=== PATIENT | male | born 1995 | race Two or more races ===

== ENCOUNTER 2017-03-03 19:40 | Emergency (ER) | payer MEDICAID ==
[~2017-03-03] VITALS: Ht 182.9 cm; Wt 83.9 kg
[2017-03-03] MEDS ORDERED: NKM (19:50)
[2017-03-03] MEDS ORDERED: Bacitracin Oint UD TOPIC ONE (20:30)
--- NOTE | 2017-03-03 20:46 | Emergency Room Report ---
History of Present Illness General Chief Complaint: Skin Rash/Abscess Source: Patient (Patrica Mazariegos) Present Illness HPI 21 YO Male presents to the ED c/o Tenderness, erythema, and yellow d/c to the anterior johnson s/p abrasion from rug burn x 4 days. Patient states that he sustained injury to be a rub burn several days ago and was evaluated out an emergency department that updated his tetanus however they did not provide wound cleaning. Patient was given topical antibiotic ointment. He should states that he was having moderate tenderness to the anterior johnson and when he was inspecting the lesion prior to applying the ointment, he noticed a small white object was embedded and he was able to pull it out creating a small hole that continues to bleed. Patient states that he has noticed progressive erythema about the site of the tiny hole. Patient denies fevers or chills patient denies pain knee or pain upon flexion of the knee joint. Patient denies bony tenderness. Patient denies taking blood thinning medications. Denies numbness tingling or loss of sensation or gross motor movements of the extremities, incontinence of bowel or bladder. Denies CP, Palpitations, LOC, AMS , dizziness, Changes in Vision, Sensation, paresthesias, or a sudden severe headache. (Patrica Mazariegos) Allergies: Coded Allergies: No Known Allergies (Unverified , 03/03/17) Patient History Past Medical History: see triage record Past Surgical History: none Pertinent Family History: none Immunizations: UTD Reviewed Nursing Documentation: PMH: Agreed, PSxH: Agreed (Patrica Mazariegos) Nursing Documentation-PM Past Medical History: No Stated History (Patrica Mazariegos) Review of Systems All Other Systems: negative except mentioned in HPI (Patrica Mazraiegos) Physical Exam Vital Signs Date Time Temp Pulse Resp B/P Pulse Ox O2 Delivery O2 Flow Rate FiO2 03/03/17 19:46 65 14 120/70 100 Room Air Sp02 EP Interpretation: reviewed, normal General Appearance: no apparent distress, alert, GCS 15, non-toxic Head: normocephalic, atraumatic Eyes: bilateral eye PERRL, bilateral eye normal inspection ENT: hearing grossly normal, normal pharynx, no angioedema, normal voice Neck: full range of motion, supple/symm/no masses Respiratory: lungs clear, normal breath sounds, speaking full sentences Cardiovascular #1: regular rate, rhythm, no edema Musculoskeletal: back normal, gait/station normal, normal range of motion - FROM of knee without pain., non-tender, tender - to superficial skin and area of erythema on the anterior johnson. Neurologic: alert, oriented x3, responsive, motor strength/tone normal, sensory intact, normal gait, speech normal Psychiatric: judgement/insight normal, memory normal, mood/affect normal Skin: normal color, no rash, warm/dry, well hydrated, other - small 2mm size puncture wound noted after wound cleaning, surrounding erythema, no obvious FB noted. , abrasions - anterior knee/johnson abrasion just below the knee joint, there are multiple scabs, healed abrasion, there is a puncture wound noted Lymphatic: no adenopathy (Patrica Mazariegos [email or web address]) Medical Decision Making PA Attestation Dr. Evans is my supervising Physician whom patient management has been discussed with. (Patrica Mazariegos P.AGeoffrey) Diagnostic Impression: Primary Impression: Puncture wound Additional Impression: Abrasion of skin with infection ER Course Pt. presents to the ED c/o Tenderness, erythema, and yellow d/c to the anterior johnson s/p abrasion from rug burn x 4 days. -received tetanus at hospital that did initial evaluation Ddx considered but are not limited to cellulitis, retained FB, puncture wound, septic joint just to name a few Vital signs: are WNL, pt. is afebrile H&PE are most consistent with abrasion, and small puncture wound of the right anterior johnson just below the knee joint, no evidence to suspect involvement of the knee at this time such as septic joint. evidence to suggest superficial soft tissue infection. ORDERS: none required at this time, the diagnosis is clinical ED INTERVENTIONS: - wound cleaning, no fb visualized at this time, no fb palpated. - bacitracin and sterile wound dressing is applied by RN. d/w pt. signs that would indicate worsening and spread of infection to keep a close eye on, which would also indicate prompt return to the ED. he verbalized his understanding and agreement with proposed plan. DISCHARGE: At this time pt. is stable for d/c to home. Will provide printed patient care instructions, and any necessary prescriptions. Care plan and follow up instructions have been discussed with the patient prior to discharge. (Patrica Mazariegos) Last Vital Signs Date Time Temp Pulse Resp B/P Pulse Ox O2 Delivery O2 Flow Rate FiO2 03/03/17 19:46 65 14 120/70 100 Room Air (Patrica Mazariegos) Last Vital Signs Date Time Temp Pulse Resp B/P Pulse Ox O2 Delivery O2 Flow Rate FiO2 03/03/17 21:01 97.4 64 18 98/54 98 Room Air (Kar Evans M.D.) Disposition: HOME, SELF-CARE Condition: Stable Scripts Bacitracin (Bacitracin Zinc) 15 Gm Oint...g. 1 APPLIC TOPIC BID, #15 APPLIC Prov: Patrica Mazariegos 03/03/17 Cephalexin* (KEFLEX*) 500 Mg Capsule 500 MG ORAL EVERY 12 HOURS for 7 Days, #14 CAP 0 Refills Prov: Patrica Mazariegos 03/03/17 Referrals: NOT CHOSEN IPA/MD,REFERRING (PCP) Patient Instructions: Cellulitis, [id number] Additional Instructions: Take medications as directed. Follow up with PCP in 3-5 days Return sooner to ED if new symptoms occur, or current symptoms become worse. - Please note that this Emergency Department Report was dictated using [employer] boy/girl technology software, occasionally this can lead to erroneous entry secondary to interpretation by the dictation equipment. Patrica Mazariegos Mar 03, 2017 20:46 aKr Evans M.D. Mar 11, 2017 10:36
[2017-03-03] MEDS ORDERED: BACITRACIN1 APPLIC TOPIC (20:49)
[2017-03-03] MEDS ORDERED: CEPHALEXIN500 MG ORAL (20:49)
[2017-03-03 21:01] VITALS: BP 98/54
== END 2017-03-03 21:03 | disposition home or self-care (01) ==
LOC: EMR 20:06
DX: S81.831D Puncture wound without foreign body, right lower leg, subsequent encounter (principal); S80.811D Abrasion, right lower leg, subsequent encounter; L08.9 Local infection of the skin and subcutaneous tissue, unspecified; X58.XXXD Exposure to other specified factors, subsequent encounter
CPT/HCPCS: 99284